=== PATIENT | male | born 1940 | race Caucasian/White ===

== ENCOUNTER 2017-10-12 19:22 | Emergency (ER) | payer MEDICARE, BC ==
[2017-10-12] MEDS ORDERED: ALBUTEROL NEB SOL 2.5MG/3ML 1 VIAL SOL NEB ONE (19:46)
[2017-10-12] MEDS ORDERED: ALBUTEROL NEB SOL 2.5MG/3ML 1 VIAL SOL ONE (19:48)
[2017-10-12] MEDS ORDERED: FUROSEMIDE 40 MG TAB PO SCH (20:00)
[2017-10-12] MEDS ORDERED: LORATADINE 10 MG TAB PO SCH (20:00)
[2017-10-12] MEDS ORDERED: FUROSEMIDE 40 MG TAB ONE (20:16)
[2017-10-12] MEDS ORDERED: LORATADINE 10 MG TAB PO ONE (20:16)
[2017-10-12] MEDS ORDERED: METOLAZONE 2.5 MG TAB PO SCH (20:45)
[2017-10-12 20:47] LABS: BASOPHILS % (AUTO) 1 % (0-3); EOSINOPHILS % (AUTO) 2 % (0-9); HEMATOCRIT 46 % (39-53); MEAN CORPUSCULAR HGB CONC 31.7 gm/dl (32.0-36.0); MEAN CORPUSCULAR VOLUME 86 fL (80-100); MONOCYTES % (AUTO) 4.6 % (0-12); NEUTROPHILS % (AUTO) 66.7 % (37-80)
[2017-10-12] MEDS ORDERED: METOLAZONE 2.5 MG TABLET ONE (20:50)
[2017-10-12 20:52] LABS: CALCIUM 9.9 mg/dl (8.5-10.1); POTASSIUM 4.1 mMol/L (3.5-5.1)
[2017-10-12 21:02] VITALS: TEMP 98.6
[2017-10-12] MEDS ORDERED: POTASSIUM CHLORIDE 10 MEQ TER PO ONE (21:35)
[2017-10-12] MEDS ORDERED: ALPRAZOLAM 0.25 MG TAB PO ONE (21:36)
[2017-10-12] MEDS ORDERED: WARFARIN SODIUM 5 MG TAB PO SCH (21:45)
[2017-10-12] MEDS ORDERED: METFORMIN HYDROCHLORIDE 500 MG TAB PO SCH (21:45)
[2017-10-12] MEDS ORDERED: GLIPIZIDE 5 MG TAB PO SCH (21:45)
[2017-10-12] MEDS ORDERED: CARVEDILOL 3.125 MG TAB PO SCH (21:45)
[2017-10-12] MEDS ORDERED: SENNOSIDES A AND B 8.6 MG TAB PO SCH (21:45)
[2017-10-12] MEDS ORDERED: POTASSIUM CHLORIDE 10 MEQ TER ONE (22:04)
[2017-10-12] MEDS ORDERED: CARVEDILOL 3.125 MG TAB ONE (22:04)
[2017-10-12] MEDS ORDERED: GLIPIZIDE 5 MG TAB ONE (22:04)
[2017-10-12] MEDS ORDERED: ALPRAZOLAM 0.25 MG TAB ONE (22:04)
[2017-10-12] MEDS ORDERED: METFORMIN HYDROCHLORIDE 500 MG TAB ONE (22:04)
[2017-10-12] MEDS ORDERED: SENNOSIDES A AND B 8.6 MG TAB ONE (22:04)
[2017-10-12] MEDS ORDERED: WARFARIN SODIUM 5 MG TAB ONE (22:05)
[2017-10-12 23:40] LABS: APPEARANCE,URINE Clear; BILIRUBIN,URINE NEGATIVE (NEGATIVE); COLOR,URINE Yellow; GLUCOSE, URINE (UA) NEGATIVE (NEGATIVE); KETONES,URINE TRACE (NEGATIVE); LEUKOCYTE ESTERASE ,URINE NEGATIVE (NEGATIVE); NITRATE,URINE NEGATIVE (NEGATIVE); OCCULT BLOOD,URINE TRACE LYSED (NEG-TRACE); UROBILINOGEN,URINE 0.2 (0.2-1.0 EU)
[2017-10-12 23:48] LABS: RBC,URINE 0-4 (0-3AV/HPF); WBC,URINE 0-3 (0-5AV/HPF)
[2017-10-13] MEDS ORDERED: SODIUM CHLORIDE 0.9% FLUSH 10 ML SOL IV PRN (03:56)
[2017-10-13 04:30] VITALS: BP 141/65; PULSE 69; RESP 22; O2SAT 92
== END 2017-10-13 04:20 | disposition short-term general hospital (02) | DRG 282 ==
LOC: ED 19:22
DX: I21.4 Non-ST elevation (NSTEMI) myocardial infarction (principal); I50.9 Heart failure, unspecified
CPT/HCPCS: 36415; 71020; 80048; 81001; 83880; 84484; 85025; 85610; 93005; 99284; 99285; J7603

== ENCOUNTER 2019-04-30 09:40 | Outpatient (CLI) | payer MEDICARE, OTHER | END 2019-04-30 09:41 | disposition home or self-care (01) | LOC: CONVCARE 09:40 ==